=== PATIENT | male | born 1950 | race Two or more races ===

== ENCOUNTER → 2024-01-31 | Outpatient (CLI) | payer MEDICARE, MEDICAID, SELFPAY ==
--- NOTE | 2024-01-31 11:16 | XR_ITS ---
Examination: Abdomen AP single view Technique: AP portable supine abdomen, single view Exam date and time: January 31, 2024 1123 hours INDICATIONS: Left flank pain beginning months ago. FINDINGS: Abundant stool in the colon overlying the kidneys No renal or ureteral calculi Surgical clips upper right abdomen IMPRESSION: No renal or ureteral calculi
== END | disposition home or self-care (01) ==
PROVIDERS: PCP Physician Assistant; Referring Provider Surgery; Visit Provider Surgery
DX: N20.0 Calculus of kidney (principal)
CPT/HCPCS: 74018

== ENCOUNTER → 2024-02-21 | Outpatient (CLI) | payer MEDICARE, MEDICAID, SELFPAY ==
--- NOTE | 2024-02-21 14:15 | XR_ITS ---
Examination: Retroperitoneal ultrasound, complete Technique: Multiple high resolution grayscale images of the retroperitoneum obtained, including kidneys and bladder. Exam date and time:February 21, 2024 1457 hours INDICATIONS: Left flank pain beginning 6 months ago FINDINGS: Right kidney 10.7 x 5.3 x 5.3 cm cortex 1.8 cm Left kidney 10.1 x 4.4 x 5.0 cm cortex 1.9 cm Moderate bilateral renal parenchymal scar formation No hydronephrosis No bladder mass or bladder calculi Bladder prevoid by 28 cc No prostatomegaly no prostate nodules IMPRESSION: Moderate bilateral renal parenchymal scar formation No hydronephrosis or renal calculi
== END | disposition home or self-care (01) ==
PROVIDERS: PCP Surgery; Referring Provider Surgery; Visit Provider Surgery
DX: N28.89 Other specified disorders of kidney and ureter (principal)
CPT/HCPCS: 76770